=== PATIENT | male | born 1965 | race Two or more races ===

== ENCOUNTER 2024-12-13 20:20 | Emergency (ER) | payer OTHER ==
[~2024-12-13] VITALS: Ht 177.8 cm; Wt 159.9 kg
[2024-12-13 20:45] VITALS: BP 165/101; PULSE 99; RESP 16; O2SAT 90
[2024-12-13] MEDS ORDERED: INSU1INJ19 SC (21:46)
[2024-12-13] MEDS ORDERED: IBUP-1455 PO (21:46)
[2024-12-13] MEDS ORDERED: LOSA-534 PO (21:46)
[2024-12-13] MEDS ORDERED: METF-929 PO (21:46)
[2024-12-13] MEDS ORDERED: NIFE1TAB30 PO (21:46)
--- NOTE | 2024-12-13 21:47 | ED.PDOC ---
History of Present Illness HPI Comments 59-year-old male with a history of hypertension, diabetes and sciatica brought in by self for a medication refill. Patient states he has been out of his diabetes medication for about a week. He also reports drinking a lot of juice over 's weekend which he feels has caused his blood glucose to be high. He reports some vision changes which are characteristic of when his blood sugar is high. He denies any fever, abdominal pain, nausea, vomiting, chest pain or shortness breath. He does report left-sided sciatic nerve pain. Chief Complaint: Hyperglycemia Time Seen by MD: 21:31 Reviewed Notes: Nurses Notes, Medications, Allergies Home Meds Active Scripts Nifedipine (Nifedipine Er) 60 Mg Tab, 1 TAB PO DAILY, #30 TAB 5 Refills qam Prov:ALBERTO ROBLEDO MD 12/13/24 Metformin HCl (Metformin Hydrochloride) 1,000 Mg Tab, 1000 MG PO BID, #60 TAB with breakfast and dinner Prov:ALBERTO ROBLEDO MD 12/13/24 Losartan Potassium (Losartan Potassium) 50 Mg Tab, 1 TAB PO DAILY, #30 TAB 5 Refills qam Prov:ALBERTO ROBLEDO MD 12/13/24 Ibuprofen Micronized (Ibuprofen) 800 Mg Tab, 800 MG PO Q8HP PRN, #30 TAB prn sciatica pain, take with food Prov:ALBERTO ROBLEDO MD 12/13/24 Insulin Glargine (Basaglar Kwikpen) 100 Unit/Ml Inj, 20 UNIT SC HS, #3 ML Prov:ALBERTO ROBLEDO MD 12/13/24 Information Source: Patient Mode of Arrival: Ambulatory Severity: Moderate Timing: Hours Duration: Since onset Prehospital treatment: None Past Medical History PAST MEDICAL HISTORY: DM, HTN Past Medical History (Other): Sciatica,morbid obesity Surgical History: Denies all surgeries Family History Family History: Reviewed,noncontributory to illness Social History Smoker: Non-Smoker Alcohol: Denies ETOH Use Drugs: Denies Drug Use Lives In: Home All Other Systems: Reviewed and Negative (Comprehensive systems review obtained and negative except for what is stated in the HPI.) Physical Exam General Appearance: No Apparent Distress, Obese HEENT: Other (Pupils symmetric, no facial asymmetry, moist mucous membranes) Neck: Full Range of Motion, Normal Inspection Respiratory: Lungs Clear, No Accessory Muscle Use, No Respiratory Distress, Normal Breath Sounds Cardiovascular: No Edema, No JVD, Regular Rate/Rhythm Breast Exam: Deferred Gastrointestinal: Non Tender, Soft Genitalia: Deferred Pelvic: Deferred Rectal: Deferred Extremities: Normal inspection, Normal range of motion, Non-tender, No pedal edema Neurologic: Alert (Oriented x4), Normal Affect, Normal Mood, Other (Ambulatory without difficulty. No gross focal deficit.) Cerebellar Function: NOT DONE Reflexes: NOT DONE Skin: Dry, Normal Color, Warm Lymphatic: NOT DONE Was a procedure done? Was a procedure done?: No Differential Dx Considerations may include: Hyperglycemia, hyperglycemic hyperosmolar state, DKA, infection such as UTI, cardiac event, CVA, TIA, electrolyte imbalance, medication noncompliance, among others X-Ray, Labs, Meds, VS Vital Signs Date Time Temp Pulse Resp B/P (MAP) Pulse Ox O2 Delivery O2 Flow Rate FiO2 12/13/24 20:45 98.5 99 16 165/101 (122) 90 Lab Test 12/13/24 21:29 12/13/24 21:28 Range/Units POC Glucose 578 *H 556 *H 70-106 mg/dl X-Ray, Labs, Meds, VS Comment 59-year-old male with a history of hypertension, diabetes and sciatica presenting for a medication refill and found to be hyperglycemic with blood glucose greater than 500 Vitals remarkable for blood pressure 165/101, oxygen saturation 90% on room air Exam remarkable for morbid obesity. No respiratory distress. Rhythm strip independently interpreted by me: Sinus rhythm, rate 99, no ectopy. Plan was for a workup to rule out DKA among other conditions in the differential, however patient declined any blood work, imaging studies or treatment in the ED, stating that when his blood sugar is high, he prefers to treated at home. He was advised of the risks of leaving prior to evaluation and treatment including worsening symptoms, permanent disability or . He expressed understanding and insisted on leaving against medical advice. He was alert, oriented x4 and capable of making informed decisions at the time he signed out against medical advice. Patient advised to follow-up with his primary physician soon as possible and to seek immediate medical attention for persistent or worsening symptoms. Time of 1ST Reevaluation: 21:55 Reevaluation 1ST: Unchanged Patient Education/Counseling: Diagnosis, Treatment Family Education/Counseling: No Family Present Departure 1 Departure Time of Disposition: 21:38 Impression: Primary Impression: Hyperglycemia Disposition: LEFT AGAINST MEDICAL ADVICE Condition: Fair Additional Instructions: You are leaving against medical advice. Follow-up with your primary doctor as soon as possible. Return to ER for persistent or worsening symptoms. e-Prescriptions Nifedipine (Nifedipine Er) 60 Mg Tab 1 TAB PO DAILY, #30 TAB 5 Refills qam Prov: ALBERTO ROBLEDO MD 12/13/24 Metformin HCl (Metformin Hydrochloride) 1,000 Mg Tab 1000 MG PO BID, #60 TAB with breakfast and dinner Prov: ALBERTO ROBLEDO MD 12/13/24 Losartan Potassium (Losartan Potassium) 50 Mg Tab 1 TAB PO DAILY, #30 TAB 5 Refills qam Prov: ALBERTO ROBLEDO MD 12/13/24 Ibuprofen Micronized (Ibuprofen) 800 Mg Tab 800 MG PO Q8HP PRN, #30 TAB prn sciatica pain, take with food Prov: ALBERTO ROBLEDO MD 12/13/24 Insulin Glargine (Basaglar Kwikpen) 100 Unit/Ml Inj 20 UNIT SC HS, #3 ML Prov: ALBERTO ROBLEDO MD 12/13/24 Discharged With: Self Critical Care Note Critical Care Time?: No Stability Stability form required: No Heart Score Heart Score: Heart Score Response (Comments) Value History N/A 0 EKG N/A 0 Age N/A 0 Risk Factors N/A 0 Troponin N/A 0 Total 0 I personally scribed for ALBERTO ROBLEDO MD ([email or web address]) on 12/13/24 at 21:59. Electronically submitted by Lenny Grigsby ([email or web address]). ALBERTO ROBLEDO MD Dec 13, 2024 21:47
== END 2024-12-13 21:47 | disposition left against medical advice (07) ==
LOC: ER 20:20
DX: E11.65 Type 2 diabetes mellitus with hyperglycemia (principal); E11.9 Type 2 diabetes mellitus without complications; I10 Essential (primary) hypertension; Z79.899 Other long term (current) drug therapy
CPT/HCPCS: 82947; 82962